=== PATIENT | female | born 1990 | race Caucasian/White ===

== ENCOUNTER 2016-05-02 17:39 | Emergency (ER) | payer OTHER ==
[~2016-05-02 17:39] MED LIST: ALPRAZOLAM1 M2 PO; ALPRAZOLAM1 MG PO; BENZONATATE200 MG PO; CIPRO 500MG TA500 MG PO; DILAUDID2 MG PO; IBUPROFEN PO; IBUPROFEN800 M1 PO; MOTRIN 600 MG600 MG PO; NOVAPLUS V0.09 MG/Ac INH; PERCOCET 325 MG1 TA2 PO; TRAMADOL HCL50 M1 PO; VICODIN 5-3001 EACH PO; ZITHROMAX Z-PA250 M1 PO; ZOFRAN ODT4 MG PO; oxycodone PO
== END 2016-05-02 18:12 | disposition admitted as inpatient to this hospital (09) ==
LOC: ERH 17:39
DX: R07.81 Pleurodynia (principal)

== ENCOUNTER 2016-06-17 17:55 | Emergency (ER) | payer OTHER ==
[~2016-06-17] VITALS: Ht 157.5 cm; Wt 52.2 kg
--- NOTE | 2016-06-17 18:26 | ED NECK/BACK PAIN COMPLAINT ---
History of Present Illness General Chief Complaint: Low Back Pain/Injury Stated Complaint: PT IS HAVING LOWER BACK PAIN Source: patient Exam Limitations: no limitations Vital Signs & Intake/Output Vital Signs & Intake/Output Vital Signs Date Time Temp Pulse Resp B/P B/P Pulse O2 O2 Flow FiO2 Mean Ox Delivery Rate 06/17 1827 99 Room Air 06/17 1813 97.0 80 20 118/56 98 Room Air Room Air Allergies Coded Allergies: Penicillins (HIVES 06/25/15) acetaminophen (PT FATHER DEVELOPED ALLERGY AND THEN FROM ANEURYSM 06/25/15) amoxicillin (HIVES 06/25/15) cefaclor (HIVES 06/25/15) mushroom (ANAPHYLAXIS 06/25/15) Triage Note: PT TO ED WITH C/O LOW BACK SINCE MONDAY, THEN THE PAIN STARTED TO MOVE UP TO RIGHT SHOULDER AREA LAST COUPLE OF DAYS. Triage Nurses Notes Reviewed? yes Onset: Gradual Duration: day(s): (4) Timing: recent history Quality/Severity: moderate Location: T-spine, lumbar spine, paraspinous muscles Radiation: none Context: AFTER YARD WORK Loss of Consciousness: no loss of consciousness : No Patient currently breastfeeds: No HPI: Patient is a 25-year-old female presenting to the emergency department with chief complaint of low back pain radiating up the thing going on for the past 4 days. It started after doing yard work. Pain is achy and throbbing. Worse with movement. No numbness or tingling. Denies any urinary incontinence or retention. Denies any urinary frequency urgency or dysuria. No hematuria. No fevers or chills. History of muscle strains in the past. Denies any falls or direct trauma. Denies lower extremity weakness. (EUSEBIA SIMMONS,JARAD) Reconcile Medications Alprazolam 1 MG TABLET 1 TAB PO BIDP PRN ANXIETY (Reported) Hydrocodone/Acetaminophen (Vicodin 5-300 MG Tablet) 5 MG-300 MG TABLET 1 TAB PO BID BREAKTHROUGH PAIN Ibuprofen 800 MG TABLET 1 TAB PO TID PRN PAIN Methocarbamol (Robaxin) 500 MG TABLET 1 TAB PO TID PRN MUSCLE SPASMS Oxycodone HCl 5 MG TABLET 1 TAB PO BIDP PRN PAIN (ANSHUL BLEDSOE,DAVID) Past History Travel History Traveled to [place] past 21 day No Medical History Any Pertinent Medical History? see below for history Neurological: NONE EENT: NONE Cardiovascular: NONE Respiratory: NONE Gastrointestinal: NONE Hepatic: NONE Renal: NONE Musculoskeletal: NONE Psychiatric: anxiety Endocrine: NONE Blood Disorders: NONE Cancer(s): NONE CELLAR PACKER/Reproductive: OVARIAN CYSTS Tetanus Vaccine: 10/28/14 Surgical History Surgical History: OVARIAN DERMOID CYST REMOVAL X 2 BLADDER CONNECTED TO URETER AT 2 WEEKS OLD Psychosocial History Who do you live with Mother What is your primary language [place] Tobacco Use: Current Daily Use Daily Tobacco Use Amount/Type: => 5 Cigarettes daily ETOH Use: denies use Illicit Drug Use: denies illicit drug use Family History Hx Contributory? No (JARAD NUNEZ) Review of Systems Review of Systems Constitutional: Reports: no symptoms. Comments Review of systems: See HPI, All other systems negative. Constitutional, no chills fever or weight loss HEENT: No visual changes no sore throat no congestion Cardiovascular: No chest pain ,palpitation Skin, no jaundice no rashes Respiratory: No dyspnea cough sputum or hemoptysis GI: No nausea no vomiting : No dysuria No hematuria Muscle skeletal: no neck pain, Neurologic: No numbness no confusion Psych: No stress anxiety or depression,. Heme/endocrine: No bruising no bleeding no polyuria or polydipsia Immunology: No splenectomy or history of AIDS (JARAD NUNEZ) Physical Exam Physical Exam General Appearance: well developed/nourished, no apparent distress, alert, awake , comfortable Neck: normal inspection, supple, full range of motion Comments: Well-developed well-nourished person in no acute distress HEENT: Pupils equally round and reactive to light and accommodation. Nose is atraumatic. Neck: Supple, no lymphadenopathy, normal range of motion without pain or tenderness no C-spine tenderness. Full range of motion. Back: Tender to palpation along the lumbar paraspinal muscles as well as thoracic paraspinal muscles. Limited range of motion secondary to pain with forward flexion, backward extension and lateral rotation. Positive muscle spasms in the lumbar thoracic paraspinal muscles. Cardiovascular: Regular rate and rhythms no murmurs rubs or gallops, normal JVP Respiratory: Chest nontender. No respiratory distress.breath sounds clear to auscultation bilaterally Abdomen: Soft, nontender nondistended Extremity: No edema, full range of motion of upper and lower extremities without difficulty or pain. Strength is equal and symmetric bilaterally. Muscular strength is 5 out of 5 in upper and lower 70s. Neuro: Alert oriented x3, patellar reflexes are 2+ bilaterally. Skin: No appreciable rash on exposed skin, skin is warm and dry. Psych: Mood and affect is normal, memory and judgment is normal. (JARAD NUNEZ) Progress Differential Diagnosis: cauda equina syn, herniated disc, myofascial strain, pyelo/UTI, sciatica Plan of Care: Current Medications Sig/Wilma Start time Last Medication Dose Stop Time Status Admin Ketorolac 30 MG ONCE ONE 06/17 1829 AC Tromethamine 06/17 1830 (Toradol) Methocarbamol 500 MG ONCE ONE 06/17 1829 AC (Robaxin) 06/17 1830 Comments: No urinary symptoms. (JARAD NUNEZ) Departure Departure Time of Disposition: 1832 Disposition: HOME OR SELF CARE Condition: Stable Clinical Impression Primary Impression: Back pain Qualifiers: Back pain location: back pain in unspecified location Chronicity: unspecified Back pain laterality: bilateral Qualified Code: M54.9 - Dorsalgia, unspecified Referrals: RAMON RAMÍREZ APRN (PCP/Family) Additional Instructions: Follow-up with your primary care physician call to make an appointment. Take Robaxin and Vicodin as prescribed. Return for worsening symptoms or concerns. Apply warm heat. Departure Forms: Customer Survey General Discharge Information (JARAD NUNEZ) Departure Prescriptions: Current Visit Scripts Methocarbamol (Robaxin) 1 TAB PO TID PRN MUSCLE SPASMS #10 TAB Oxycodone HCl 1 TAB PO BIDP PRN PAIN #10 TAB PA/IDEA MAN Co-Sign Statement Statement: ED Attending supervision documentation- [] I saw and evaluated the patient. I have also reviewed all the pertinent lab results and diagnostic results. I agree with the findings and the plan of care as documented in the PA's/IDEA MAN's documentation. [X] I have reviewed the ED Record and agree with the PA's/IDEA MAN's documentation. [] Additions or exceptions (if any) to the PAs/IDEA MAN's note and plan are summarized below: [] (ANSHUL BLEDSOE,DAVID)
[2016-06-17] MEDS ORDERED: TRAMADOL HCL50 M1 PO (18:36)
[2016-06-17] MEDS ORDERED: ROBAXIN500 M1 PO (18:36)
[2016-06-17] MEDS ORDERED: OXYCODONE HCL5 M1 PO (19:03)
[2016-06-17 19:15] VITALS: BP 110/74
== END 2016-06-17 19:16 ==
LOC: ERH 17:55
DX: M54.5 Low back pain (principal)
CPT/HCPCS: 96372; J1885